=== PATIENT | female | born 1990 | race Caucasian/White ===

== ENCOUNTER 2021-09-24 17:19 | Emergency (ER) | payer MEDICAID ==
[~2021-09-24] VITALS: Ht 154.9 cm; Wt 81.6 kg
[2021-09-24 18:00] VITALS: BP_SYST 115
--- NOTE | 2021-09-24 18:04 | NUR ---
Pt here from home reporting flu like sx (fever, diarrhea, body aches and h/a) x 2 days. Alert and oriented x 3 upon face to face assessment. Pending MD best. Dr Cabrera made aware of elevated HR.
--- NOTE | 2021-09-24 18:04 | NUR ---
Pt triaged in tent due to COVID-19 sx.
[2021-09-24] MEDS ORDERED: NACL 0.9% 1,000 ML IV ONE ×2 (18:30→20:30)
--- NOTE | 2021-09-24 18:31 | NUR ---
Patient to ER bed H2 for evaluation. Side rails up. Report given to Chon CHANG.
--- NOTE | 2021-09-24 18:45 | NUR ---
#20 gauge angiocath placed to right forearm. Use of asceptic technique. Opsite placed over site. Blood return noted. Blood for lab drawn from site. Flushed with 10 cc of normal saline. No evidence of infiltration noted. Patient tolerated well.
[2021-09-24 19:06] LABS: BASOPHILS % (AUTO) 0.3 % (0.0-2.0); HEMATOCRIT 41.2 % (36-48); LYMPHOCYTES % (AUTO) 6.9 % (20.5-51.5); MEAN CORPUSCULAR HEMOGLOBIN 28 pg (27-31); MEAN CORPUSCULAR HGB CONC 34 % (32-36); MEAN CORPUSCULAR VOLUME 81 fL (79.0-98.0); MONOCYTES # (AUTO) 0.6 K/uL (0.0-1.0); MONOCYTES % (AUTO) 3.8 % (1.7-9.3); PLATELET COUNT (AUTO) 284 K/uL (130-430); RED BLOOD CELL COUNT(AUTO) 5.06 MIL/uL (4.2-6.2); RED CELL DISTRIBUTION WIDTH 13.8 % (9.0-15.0); WHITE BLOOD COUNT (AUTO) 14.6 K/uL (4.8-10.8)
--- NOTE | 2021-09-24 19:10 | NUR ---
Report given to Lisa CHANG to assume care of patient
--- NOTE | 2021-09-24 19:14 | NUR ---
Pt is awake in bed, A&O X 4, and following commands. No signs of resp distress, even rise and fall in chest, and talking in full sentences. Pt reports having a headache 07/11. Safety precautions in place.
[2021-09-24 19:15] LABS: CREATININE 0.8 mg/dL (0.55-1.30); POTASSIUM 3.1 mmol/L (3.5-5.1)
[2021-09-24 19:21] LABS: ALBUMIN 3.6 g/dL (3.4-4.8); TOTAL BILIRUBIN 0.2 mg/dL (0.0-1.0)
--- NOTE | 2021-09-24 19:27 | NUR ---
COVID sample collected and sent to lab.
[2021-09-24] MEDS ORDERED: KETOROLAC TROMETHAMINE 30 MG VIAL IVP ONE (19:30)
[2021-09-24 21:40] VITALS: BP_SYST 105
--- NOTE | 2021-09-24 21:40 | NUR ---
Patient given written and verbal discharge instructions and verbalizes understanding. ER Dr. Cabrera discussed with patient the results and treatment provided. Patient in stable condition. ID arm band removed. IV catheter removed intact and dressing applied, no active bleeding. Patient educated on pain management and to follow up with PMD. Pain Scale 0. Opportunity for questions provided and answered. Medication side effect fact sheet provided.
== END 2021-09-24 21:40 | disposition home or self-care (01) ==
LOC: SED 17:19
DX: A08.4 Viral intestinal infection, unspecified (principal); R19.7 Diarrhea, unspecified; Z20.822 Contact with and (suspected) exposure to COVID-19
CPT/HCPCS: 36415; 80053; 85025; 87426; 96361; 96374; 99283; J1885; J7030

== ENCOUNTER 2021-09-26 15:26 | Emergency (ER) | payer MEDICAID ==
[~2021-09-26] VITALS: Ht 154.9 cm; Wt 81.6 kg
[2021-09-26 15:44] VITALS: BP_SYST 118
--- NOTE | 2021-09-26 19:14 | NUR ---
called for bed placement. patient not in waiting room.
== END 2021-09-26 19:14 | disposition left against medical advice (07) ==
LOC: SED 15:26
DX: R19.7 Diarrhea, unspecified (principal); Z53.21 Procedure and treatment not carried out due to patient leaving prior to being seen by health care provider

== ENCOUNTER 2021-10-01 00:13 | Emergency (ER) | payer MEDICAID ==
[~2021-10-01] VITALS: Ht 154.9 cm; Wt 80.7 kg
[2021-10-01 00:37] VITALS: BP_SYST 114
--- NOTE | 2021-10-01 00:45 | NUR ---
PT HERE FOR DIARRHEA X10 DAYS WITH INTERMITTENT LOWER ABD CRAMPING AND LOWER BACK PAIN. DENIES FEVER AT THIS TIME, PT STATED THAT SHE WAS HER E 1 WK AGO FOR SAME REASON.
--- NOTE | 2021-10-01 01:33 | NUR ---
PT ASSISTED TO ROOM 3, AMBULATED WITH STEADY GAIT
[2021-10-01] MEDS ORDERED: SULF1TAB48 PO (01:34)
--- NOTE | 2021-10-01 01:35 | NUR ---
PT SEEN AND EXAMINE BY DR. DURANT AT BEDSIDE
[2021-10-01 01:37] VITALS: BP_SYST 132
--- NOTE | 2021-10-01 01:40 | NUR ---
DC PT HOME AAOX4, NO SOB NOTED AND NOT IN ANY DISTRESS. DC INSTRUCTION AND PRESCRIPTION WAS GIVEN BY DR. DURANT, ALL QUESTION WERE ANDWERWED AND PATIENT VERBALIZED UNDERSTANDING,PT OUT OF DEPT WITH STEADY GAIT.
== END 2021-10-01 01:38 | disposition home or self-care (01) ==
LOC: SED 00:13
DX: A07.1 Giardiasis [lambliasis] (principal); R19.7 Diarrhea, unspecified; Z79.899 Other long term (current) drug therapy
CPT/HCPCS: 81025; 99283

== ENCOUNTER 2022-04-04 00:23 | Emergency (ER) | payer MEDICAID ==
[~2022-04-04] VITALS: Ht 154.9 cm; Wt 81.6 kg
[~2022-04-04 00:23] MED LIST: SULF1TAB48 PO
[2022-04-04 00:45] VITALS: BP_SYST 159
--- NOTE | 2022-04-04 00:48 | NUR ---
Patient triaged and placed in waiting room. VS checked and patient appears in no acute distress at this time. Accompanied by , awaiting available bed. Urine cup provided, for urine sample collection
--- NOTE | 2022-04-04 01:00 | NUR ---
ER examining patient.
[2022-04-04 01:23] LABS: BASOPHILS # (AUTO) 0.1 K/uL (0.0-0.2); BASOPHILS % (AUTO) 0.8 % (0.0-2.0); EOSINOPHILS # (AUTO) 0.3 K/uL (0.0-0.4); EOSINOPHILS % (AUTO) 2.9 % (0.0-4.0); HEMATOCRIT 39.6 % (36-48); HEMOGLOBIN 13.1 g/dL (12.0-16.0); LYMPHOCYTES # (AUTO) 3.9 K/uL (1.0-5.5); LYMPHOCYTES % (AUTO) 32.8 % (20.5-51.5); MEAN CORPUSCULAR HEMOGLOBIN 27 pg (27-31); MEAN CORPUSCULAR HGB CONC 33 % (32-36); MEAN CORPUSCULAR VOLUME 82 fL (79.0-98.0); MONOCYTES # (AUTO) 0.7 K/uL (0.0-1.0); MONOCYTES % (AUTO) 6.1 % (1.7-9.3); NEUTROPHILS # (AUTO) 6.8 K/uL (1.8-7.7); NEUTROPHILS % (AUTO) 57.4 % (40.0-70.0); PLATELET COUNT (AUTO) 383 K/uL (130-430); RED CELL DISTRIBUTION WIDTH 13.7 % (9.0-15.0); WHITE BLOOD COUNT (AUTO) 11.9 K/uL (4.8-10.8)
[2022-04-04 02:37] LABS: BILIRUBIN,URINE NEGATIVE (NEGATIVE); BLOOD, URINE NEGATIVE (NEGATIVE); CLARITY/URINE CLEAR (CLEAR); COLOR,URINE YELLOW (YELLOW); GLUCOSE,URINE NEGATIVE (NEGATIVE); KETONES,URINE NEGATIVE (NEGATIVE); LEUKOCYTE ESTERASE ,URINE NEGATIVE (NEGATIVE); NITRITE, URINE NEGATIVE (NEGATIVE); PROTEIN URINE NEGATIVE (NEGATIVE); UROBILINOGEN,URINE 0.2 (0.2-1.0)
--- NOTE | 2022-04-04 03:00 | NUR ---
Patient sitting in waiting room in stable condition. Still waiting for results
[2022-04-04 04:00] VITALS: BP_SYST 145
--- NOTE | 2022-04-04 04:00 | NUR ---
Patient given written and verbal discharge instructions and verbalizes understanding. ER MD discussed with patient the results and care provided. Patient in stable condition. No Rx given. Patient educated on pain management and to follow up with PMD. Pain Scale 0/10. Opportunity for questions provided and answered.
== END 2022-04-04 04:00 | disposition home or self-care (01) ==
LOC: SED 00:23
DX: N93.8 Other specified abnormal uterine and vaginal bleeding (principal); Z79.899 Other long term (current) drug therapy
CPT/HCPCS: 36415; 76856-TC; 81003; 81025; 84702; 85025; 86900; 86901; 99284

== ENCOUNTER 2023-01-16 17:13 | Emergency (ER) | payer MEDICAID ==
[~2023-01-16] VITALS: Ht 154.9 cm; Wt 86.2 kg
[2023-01-16 17:24] VITALS: BP_SYST 153; PULSE 90; RESP 18; TEMP 98.3; O2SAT 99
[2023-01-17] MEDS ORDERED: IPRATROPIUM/ALBUTEROL SULFATE 3 ML AMPUL.NEB (DUONEB) ONE (12:17)
== END 2023-01-16 21:30 | disposition left against medical advice (07) ==
LOC: SED 17:13
DX: R07.9 Chest pain, unspecified (principal); M79.10 Myalgia, unspecified site; Z53.21 Procedure and treatment not carried out due to patient leaving prior to being seen by health care provider
CPT/HCPCS: 93005; 99281